=== PATIENT | male | born 1970 | race Caucasian/White ===

== ENCOUNTER 2021-06-24 13:15 | Emergency (ER) | payer BC ==
[2021-06-24] MEDS ORDERED: Nitroglycerin 0.4 MG Tab.SL SL ONE (13:17)
[2021-06-24] MEDS ORDERED: Aspirin 81 MG Tab.Chew PO ONE (13:18)
== END 2021-06-24 17:40 | disposition home or self-care (01) ==
LOC: LB.ED 13:15
DX: R07.9 Chest pain, unspecified (principal); I25.2 Old myocardial infarction; E11.9 Type 2 diabetes mellitus without complications; Z88.8 Allergy status to other drugs, medicaments and biological substances; Z72.0 Tobacco use
CPT/HCPCS: 36415; 71045; 71250; 80053; 84484; 85025; 85610; 93005; 99285-25; A9270-GY

== ENCOUNTER 2021-11-25 12:11 | Emergency (ER) | payer SELFPAY ==
[2021-11-25] MEDS: Ketorolac 60 MG/2 ML SDV IM ONE (12:25)
[2021-11-25 13:07] LABS: ESTIMATED GFR 85 mL/min (>60)
[2021-11-25] MEDS ORDERED: Acetaminophen/HYDROcodone 325-5 MG Tab ONE (13:50)
[2021-11-25] MEDS: Acetaminophen/HYDROcodone 325-5 MG Tab ONE (14:06)
== END 2021-11-25 13:35 | disposition home or self-care (01) ==
LOC: LB.ED 12:11
DX: S29.9XXA Unspecified injury of thorax, initial encounter (principal); I25.2 Old myocardial infarction; E11.9 Type 2 diabetes mellitus without complications; Z88.8 Allergy status to other drugs, medicaments and biological substances; Y04.0XXA Assault by unarmed brawl or fight, initial encounter
CPT/HCPCS: 36415; 71250; 74150; 80053; 85025; 96372; 99284; A9270-GY; J1885